=== PATIENT | female | born 1990 | race Caucasian/White ===

== ENCOUNTER 2016-06-15 14:44 | Emergency (ER) | payer MEDICAID ==
[2016-06-15] MEDS ORDERED: DIAZEPAM 10 MG/2 ML SYR ONE (15:46)
== END 2016-06-15 17:01 | disposition home or self-care (01) ==
LOC: ER 14:44
DX: M62.830 Muscle spasm of back (principal); F17.210 Nicotine dependence, cigarettes, uncomplicated
CPT/HCPCS: 96372